=== PATIENT | male | born 1985 | race Two or more races ===

== ENCOUNTER 2019-03-26 18:48 | Emergency (ER) | payer MEDICAID, OTHER ==
[~2019-03-26] VITALS: Ht 170.2 cm; Wt 73.0 kg
[2019-03-26] MEDS ORDERED: TRAMADOL 50MG TABLET PO ONE (21:30)
[2019-03-26] MEDS ORDERED: CEPHALEXIN 250MG CAPSULE PO ONE (21:30)
[2019-03-26] MEDS ORDERED: IBUPROFEN 600MG TABLET PO ONE (21:30)
[2019-03-26 21:44] VITALS: BP 136/81
== END 2019-03-26 21:45 | disposition home or self-care (01) ==
LOC: ER 19:53
DX: M71.561 Other bursitis, not elsewhere classified, right knee (principal); F15.10 Other stimulant abuse, uncomplicated
CPT/HCPCS: 99284